=== PATIENT | female | born 1980 | race Two or more races ===

== ENCOUNTER → 2024-12-22 | Outpatient (CLI) | payer MEDICAID, SELFPAY ==
--- NOTE | 2024-12-22 08:45 | XR_ITS ---
Examination: Breast ultrasound, unilateral, right complete Date and time of exam: December 22, 2024 0904 hours INDICATIONS: Patient states right breast lump 11:00 position with pain beginning one year ago Technique: Real-time beverly scale ultrasonographic imaging performed right breast including all 4 quadrants as well as nipple retroareolar and axillary region. Findings: Multiple benign breast cysts, including 8:00 position 23 mm 9:00 position 12 mm, 10:00 position 30 mm, 11:00 position 30 mm, 11:00 position 33 mm No solid nodules IMPRESSION: BI-RADS Category 2: Benign findings
== END | disposition home or self-care (01) ==
DX: N63.10 Unspecified lump in the right breast, unspecified quadrant (principal)
CPT/HCPCS: 76641

== ENCOUNTER → 2024-12-23 | Outpatient (CLI) | payer MEDICAID, SELFPAY ==
--- NOTE | 2024-12-23 09:21 | XR_ITS ---
Examination: Diagnostic digital mammography, bilateral Computer aided detection 3-D breast Tomosynthesis, bilateral Date and time of exam: December 23, 2024 0924 hours INDICATIONS: Lump in the right breast note is beginning one year ago Technique: Nonmagnified MLO, CC views of the breasts to been obtained, reconstructed from 3-D Tomosynthesis images. R2 computer aided detection program utilized for evaluation of suspicious masses and/or abnormal calcifications. 3-D Tomosynthesis images obtained. Findings: The breasts are heterogeneously dense, which may obscure small masses 30 mm partially circumscribed mass upper outer right breast, 17 mm partially circumscribed mass retroareolar region right breast, likely corresponding to benign breast cysts on breast sonogram December 22, 2024 18 mm (circumscribed mass upper left breast anterior depth which may represent a cyst 11 mm focal asymmetry irregular margins upper outer left breast posterior depth Impression: BI-RADS Category 0: Incomplete: Need additional imaging evaluation 11 mm focal asymmetry irregular margins upper outer left breast posterior depth, recommend follow-up spot tomographic views of this mass as well as left breast sonography to complete the workup.
== END | disposition home or self-care (01) ==
LOC: CDIM 08:51
DX: R92.8 Other abnormal and inconclusive findings on diagnostic imaging of breast (principal); N64.89 Other specified disorders of breast
CPT/HCPCS: 77062; 77066; G0279

== ENCOUNTER → 2025-01-27 | Outpatient (CLI) | payer MEDICAID, SELFPAY ==
--- NOTE | 2025-01-27 11:00 | XR_ITS ---
Examination: Breast ultrasound, unilateral, left Date and time of exam: January 27, 2025 1050 hrs. Indications: Mammogram December 23, 2024 18 mm nodule upper left breast anterior depth 11 mm focal asymmetry upper outer left breast Technique: Real-time beverly scale ultrasonographic imaging performed left breast including all 4 quadrants as well as nipple retroareolar and axillary region. Findings: Multiple benign cysts, the largest in the 1:00 position 29 x 31 mm 4:00 nodule circumscribed 8 x 8 mm 8:00 nodule lobular margins 5 x 5 mm Impression: BI-RADS Category 2: Benign findings
--- NOTE | 2025-01-27 11:30 | XR_ITS ---
Examination: Diagnostic digital mammography, unilateral, left Computer aided detection 3-D breast Tomosynthesis, unilateral Date and time of exam: 01/27/2025, 11:05 AM Comparisons: 12/23/2024 Indications: Further evaluation of abnormality in the outer breast seen on prior exam. Technique: Nonmagnified MLO, CC views of the left breast have been obtained, reconstructed from 3-D Tomosynthesis images. R2 computer aided detection program utilized for evaluation of suspicious masses and/or abnormal calcifications. 3-D Tomosynthesis images obtained. Technologist: Findings: The breasts are heterogeneously dense, which may obscure small masses. Multiple benign-appearing partially obscured oval masses. Findings corresponds to a benign cyst seen on ultrasound exam. No evidence of suspicious masses or suspicious calcifications. Impression: BI-RADS category 2: Benign findings Recommend 1 year follow-up mammogram
== END | disposition home or self-care (01) ==
DX: R92.322 Mammographic fibroglandular density, left breast (principal); N64.89 Other specified disorders of breast
CPT/HCPCS: 76641; 77061; 77065; G0279